=== PATIENT | male | born 1980 | race Hispanic/Latino ===

== ENCOUNTER 2025-08-14 09:30 | Emergency (ER) | payer MEDICAID ==
[2025-08-14] MEDS: Ketorolac 30 MG/ML SDV IM ONE (10:13)
== END 2025-08-14 10:47 | disposition home or self-care (01) ==
LOC: JD.ED 09:30
DX: M25.572 Pain in left ankle and joints of left foot (principal); F17.210 Nicotine dependence, cigarettes, uncomplicated; Z79.899 Other long term (current) drug therapy
CPT/HCPCS: 73610; 96372; 99283; J1885